=== PATIENT | male | born 1945 | race Caucasian/White ===

== ENCOUNTER 2017-01-11 07:16 | Observation (INO) | payer MEDICARE, OTHER ==
[2017-01-11] VITALS (25 sets, daily range): BP systolic 120–166; BP diastolic 67–110; PULSE 64–83; RESP 10–23; Ht 170.2 cm; Wt 111.4 kg
[~2017-01-11] VITALS: Ht 170.2 cm; Wt 111.4 kg
[~2017-01-11 07:16] MED LIST: AMLO-147 PO; ASPI-535 PO; ATOR10TA65 PO; CIPR-193 PO; DOCU-144 PO; EXCED PO; HYDR-762 PO; ISOS20TA19 PO; METO-319 PO; NIAC500T92 PO; ONDA4TAB8 PO; TICA90TA PO; Tamsulosin Hcl PO
[2017-01-11] MEDS ORDERED: VALS160T20 PO (09:18)
[2017-01-11] MEDS ORDERED: ISOS60TA PO (09:19)
[2017-01-11] MEDS ORDERED: NCN500CCR PO (09:20)
[2017-01-11] MEDS ORDERED: RANI-347 PO (09:20)
[2017-01-11] MEDS ORDERED: METO-319 PO (09:21)
[2017-01-11] MEDS ORDERED: ACET-141 PO (09:22)
[2017-01-11] MEDS ORDERED: FAMOTIDINE 20 MG TAB PO ONE (09:30)
[2017-01-11] MEDS ORDERED: DIAZEPAM 5 MG TAB PO ONE (09:30)
[2017-01-11] MEDS ORDERED: DIPHENHYDRAMINE 50 MG CAP PO ONE (09:30)
[2017-01-11] MEDS ORDERED: SOD CHLORIDE 0.45% 1,000 ML IV ONE (09:30)
--- NOTE | 2017-01-11 09:54 | RADRPT ---
PROCEDURE: XR Chest. CLINICAL INDICATION: Positive stress test. TECHNIQUE: Portable semiupright. COMPARISON: 03/30/2015. FINDINGS: The heart is enlarged. Post CABG changes are present. Mild chronic elevation of the right hemidiaphr agm. No superimposed acute pulmonary process is demonstrated. IMPRESSION: 1. Stable mild cardiomegaly without superimposed acute pulmonary process. RPTAT: [facility] Physician Geovani Date Time Electronically viewed and signed by Cruz Feliz Physician on 01/11/2017 09:46 RR/
[2017-01-11] MEDS ORDERED: HEPARIN 1000 UNITS/NS (A-LINE) 1,000 ML ONE (10:14)
[2017-01-11] MEDS ORDERED: MIDAZOLAM 1 MG/ML 2 ML INJ ONE (10:14)
[2017-01-11] MEDS ORDERED: VERAPAMIL 5 MG INJ ONE (10:14)
[2017-01-11] MEDS ORDERED: IODIXANOL LOCM 100 ML BTL ONE (10:14)
[2017-01-11] MEDS ORDERED: FENTAnyl 50 MCG/ML VIAL ONE (10:14)
[2017-01-11] MEDS ORDERED: LIDOCAINE 1% (MDV) 20 ML INJ ONE (10:14)
[2017-01-11] MEDS ORDERED: HEPARIN 1000 UNITS/ML 10 ML INJ ONE (10:14)
[2017-01-11] MEDS ORDERED: NITROGLYCERIN (IC) 100 MCG/ML INJ ONE (10:15)
[2017-01-11] MEDS ORDERED: BIVALIRUDIN 250MG /NS 50 ML 50 ML IVPB ONE (11:02)
[2017-01-11] MEDS ORDERED: IOHEXOL 350MG/ML 50 ML BTL ONE (11:04)
[2017-01-11] MEDS ORDERED: TICAGRELOR 90 MG TABLET ONE (11:13)
[2017-01-11] MEDS ORDERED: ASPIRIN 325 MG TAB ONE (11:14)
[2017-01-11] MEDS ORDERED: SOD CHLORIDE 0.9% 1,000 ML IV SCH (11:51)
--- NOTE | 2017-01-11 11:59 | SIPON ---
Date/Time of Note Date/Time of Note DATE: 01/11/17 TIME: 11:58 Operative Report Preoperative Diagnosis 1.Angina 2.cad 3.Abnl mpi Postoperative Diagnosis 1.successful PTCA/stent x 3 to RCA with MAURA Operation/Procedure Performed 1.[facility] 2.PTCA/stent x 3 to RCA Surgeon see signature line assistant engineer 1.Angineh Anesthesia: moderate sedation Estimated blood loss: minimal Transfusion Required none Specimen NA Grafts/Implants none Complications none RENALDO LEMUS Jan 11, 2017 11:59
--- NOTE | 2017-01-11 11:59 | SIPON ---
Date/Time of Note Date/Time of Note DATE: 01/11/17 TIME: 11:58 Operative Report Preoperative Diagnosis 1.Angina 2.cad 3.Abnl mpi Postoperative Diagnosis 1.successful PTCA/stent x 3 to RCA with MAURA Operation/Procedure Performed 1.[facility] 2.PTCA/stent x 3 to RCA Surgeon see signature line assistant federal public defender 1.Angineh Anesthesia: moderate sedation Estimated blood loss: minimal Transfusion Required none Specimen NA Grafts/Implants none Complications none RENALDO LEMUS Jan 11, 2017 11:59
--- NOTE | 2017-01-11 11:59 | SIPON ---
Date/Time of Note Date/Time of Note DATE: 01/11/17 TIME: 11:58 Operative Report Preoperative Diagnosis 1.Angina 2.cad 3.Abnl mpi Postoperative Diagnosis 1.successful PTCA/stent x 3 to RCA with MAURA Operation/Procedure Performed 1.[facility] 2.PTCA/stent x 3 to RCA Surgeon see signature line engineer first assistant 1.Angineh Anesthesia: moderate sedation Estimated blood loss: minimal Transfusion Required none Specimen NA Grafts/Implants none Complications none RENALDO LEMUS Jan 11, 2017 11:59
[2017-01-11] MEDS ORDERED: morphine 2 MG INJ IV PRN (12:00)
[2017-01-11] MEDS ORDERED: ONDANSETRON 4 MG INJ IV PRN (12:00)
[2017-01-11] MEDS ORDERED: ACETAMINOPHEN 325 MG TAB PO PRN (12:00)
[2017-01-11] MEDS ORDERED: ZOLPIDEM 5 MG TAB PO PRN (12:00)
[2017-01-11] MEDS ORDERED: AL HYDROX/MG HYDROX/SIMETH 30 ML CUP PO PRN (12:00)
[2017-01-11] MEDS ORDERED: OXYCODONE/ACETAMINOPHEN (5/325) TAB PO PRN (12:00)
--- NOTE | 2017-01-11 15:34 | CARRPT ---
DATE OF PROCEDURE: 01/11/2017 TYPE OF PROCEDURE: 1. Left heart catheterization. 2. Coronary angiography. 3. Percutaneous transluminal coronary angioplasty with placement of Synergy drug-eluting stents x3, a 2.5 x 16 mm, 2.5 x 12 mm and 3.0 x 16 mm. ATTENDING PHYSICIAN: Renaldo Jon MD. REFERRING PHYSICIAN: Self-referred. INDICATION: Unstable angina. TYPE OF ANESTHESIA: Conscious and local. BRIEF HISTORY AND HOSPITAL COURSE. Mr. Gao is a 71-year-old male with history of hypertension, dyslipidemia, coronary artery disease, status post prior PTCA and stent placement in 2014 after fin ding occluded saphenous vein graft to LAD, who now presents with recurrent substernal chest pain and positive stress test findings for ischemia. PROCEDURE: After informed consent was obtained, the patient was brought [facility] [place] cardiac catheterization lab where his left radial area was prepped and draped in usual sterile fas hion. Lidocaine 2% was infiltrated in left radial area in order to achieve adequate anesthesia. Us ing modified Seldinger technique, the left femoral artery was cannulated and a 6-[place]an arterial she ath was placed. A 6-[place] JL3.5 catheter was used to cannulate the left coronary ostium with contr ast injection, multiple views of the left coronary arterial system were obtained. JL3.5 was removed over a guidewire and a JR4 was used to cannulate the right coronary arterial ostium. With contrast injection, multiple views of the right coronary arterial system obtained. JR4 was removed over a g uidewire. After additionally being used to cross the aortic valve and pull back across the aortic v alve to assess for gradient, it was removed and subsequently at this time, we moved directly to inte rventional procedure. The patient was given Angiomax bolus continuous infusion, in addition to the prior primary radial cocktail then had 2500 of heparin and 2.5 verapamil and 200 of nitroglyce rin. The patient had a JR guide used to cannulate the right coronary arterial ostium. A 0.014 morena nce middleweight guidewire was passed distal to the lesions into the right coronary artery. The les ions were pretreated with a 2.5 x 12 mm balloon up to 10 to 12 atmospheres x3 to 4 inflations to ___ __ lesions. Subsequently, the most distal lesion was then stented with a 2.5 x 16 mm drug-eluting s tent deployed at 14 atmospheres, post-dilated with the stent delivery system up to 16 atmospheres. Followup angiogram was obtained revealing excellent result, deployment of stent, [place] 3 flow through out the vessel, a mild waist in the midportion of the stent. Subsequently, a second 3.0 x 16 mm ella nt was added proximal to the stent for another lesion and deployed at 14 atmospheres, post-dilated w ith the stent delivery system up to 16 atmospheres. Followup angiogram was obtained. Excellent res ult placing the stent, PARISH 3 flow throughout the vessel and no signs of complication including perf oration or dissection. Subsequently, at this time a noncompliant 2.75 x 8 mm balloon was used to fu rther post-dilate this stent up to 18 atmospheres. The balloon was removed. Followup angiogram was obtained revealing no residual waist and no complications. Subsequently, at this time, there was s ignificant stenosis noted in between the stents and stent was added proximal to the most distal sten t, a 2.5 x 12 mm and it was deployed at 14 atmospheres and then the stent delivery balloon was place d forward to stent overlap zone, inflation was made to 18 atmospheres. Followup angiogram was obtai bekah revealing excellent result with deployment of all 3 stents, PARISH 3 flow throughout the vessel, n o signs of complication including perforation or dissection. Subsequently, at this time, the interv entional guide was removed and attention was turned to the LAD. A diagnostic once again place d in the LAD and the patient was given 200 nitroglycerin to assess the distal part of the LAD for larger size. After nitroglycerin was placed, there was no change in caliber of this vessel, it becomes a very small caliber vessel off the distal stent proximally, a sub 2 mm vessel that goes binta und the apex with a stenosis just around the apex of approximately 90%. Subsequently, at this time, the interventional guide was removed. The patient's sheath was removed. TR band was applied. Thi s completed the procedure. There were no noted complications. FINDINGS: Coronary angiography: Left main 4.5 mm with a mid-body 20% to 30% stenosis. The LAD proximally is a 4-mm vessel and then in the mid portion of the vessel I have a long stented zone with mild in-sten t restenosis approximately 10% to 20%. The vessel becomes a sub 2 mm vessel and goes around the ape x with just the apex having a 90% to 95% stenosis. There is a proximal branching diagonal 2 mm with a very diffuse disease in the very distal portion of the vessel where it is sub 1.5 mm. The circum flex proximally is a 3.5 mm vessel and has mild luminal irregularities in its distal portion up to a pproximately 10% to 20%. The mid branching obtuse marginal 2 mm vessel with no significant focal st enoses and a proximal branching obtuse marginal 2.5 mm vessel with an ostial 30% stenosis. It is a codominant vessel and therefore gives off a left-sided PDA and posterolateral branch, each approxima tely 2 mm with no significant focal stenoses. The right coronary artery proximally is a 3-mm vessel , in its mid portion has a 20% to 30% stenosis and in the very distal portion of the posterolateral branch, there is an 80% to 90% stenosis and proximal to that there is 70% to 80% stenosis. Measurement of left ventricular and diastolic pressure 15 to 16. No significant aortic stenosis by gradient. PTCA and stent placement: Prior to PTCA and stent placement in the right coronary artery, the patie nt had a distal 80% to 90% stenosis and a mid-distal 80% stenosis. Post-PTCA and stent placement, t he patient had no residual stenosis in these regions and PARISH 3 flow throughout the vessel and no si gns of complication including perforation or dissection. TOTAL FLUOROSCOPY TIME: 15.7 minutes. TOTAL CONTRAST: 210 mL. IMPRESSION: 1. Two-vessel obstructive coronary artery disease involving the very distal incomplete placed left anterior descending lesion and tandem lesions in the patient's right coronary artery and posterolate ral branch, status post successful percutaneous transluminal coronary angiography and stent placemen t x3 with drug-eluting stents. 2. High normal left heart filling pressures. 3. No significant aortic stenosis by gradient. 4. Widely patent left anterior descending stent with no significant in-stent restenosis. RECOMMENDATIONS: In light of procedure and findings at this time would: 1. Maintain the patient on aspirin 81 mg 1 tab p.o. daily indefinitely at this time. 2. Brilinta 90 mg 1 tab p.o. b.i.d. for at least 1 year. 3. Maximize medical management. 4. Aggressive risk factor reduction. 5. The patient will be admitted to the postanesthesia care unit in the ICU for post-intervention ob servation and continued management of presenting symptoms with probable discharge the following day. Dictated By: RENALDO SOUSA/HEATHER Conf#: [id number] DID#: [id number]
[2017-01-11] MEDS ORDERED: ACETAMINOPHEN 500 MG TAB PO PRN (16:30)
--- NOTE | 2017-01-11 17:24 | HP ---
DATE OF ADMISSION: 01/11/2017 REASON FOR ADMISSION: A positive stress test. HISTORY OF PRESENTING ILLNESS: This is a 71-year-old male with a past medical history of coronary a rtery bypass graft in 2000, history of ST elevation myocardial infarction in 02/2015, history of vic or stroke, prior kidney stones, hypertension, morbid obesity, systolic dysfunction with EF of 35%, w isabel was admitted by Dr. Lemus for angiogram due to positive stress test. The patient said that he had a stent placement in 2014 after finding occluded saphenous vein graft to left anterior descendin g. The patient was told at that time by Dr. Lemus that he will probably require a third stent; ho wever, he had been deferring it due to his other issues. On and off, he would have substernal chest pain with exertion. He had a recent stress test that was positive for ischemia and was admitted fo r elective angiogram. The patient had an angiogram today by Dr. Lemus and had a two-vessel obstru ctive coronary artery disease involving the distal incomplete placed left anterior descending lesion and tandem lesions in the RCA and posterolateral branch, had a PCI and a stent placement x3 with dr mckeon-eluting stents and was admitted to the ICU and I was called in for further management. PAST MEDICAL HISTORY: 1. Hypertension. 2. Hyperlipidemia. 3. History of coronary artery bypass graft 2000, status post stent placement in 2014. 4. 8 mm left kidney stone. 5. Hernia surgery on the right inguinal hernia. 6. Morbid obesity. 7. Congestive heart failure. ALLERGIES: NO KNOWN DRUG ALLERGIES. MEDICATIONS AT HOME: 1. Amlodipine 10. 2. Aspirin 81. 3. Lipitor 10. 4. Colace. 5. [place]. 6. Imdur 20 t.i.d. 7. Toprol-XL 50. 8. Niacin 50 daily. 9. Brilinta 90 mg p.o. b.i.d. SOCIAL HISTORY: Denies any history of smoking, alcohol or any drug use. Currently lives at home wi th the family. FAMILY HISTORY: Significant for both mother and father having heart disease. Father also had kidne y stones. PAST SURGICAL HISTORY: Significant for hernia repair and also prior CABG in 2010. REVIEW OF SYSTEMS: The patient is currently status post angiogram. Also has some left arm pain in the TR band site. On and off has pain in the left flank due to kidney stone. The patient is also d ealing with the pain in the right groin due to inguinal hernia. Denies any shortness of breath, any lower extremity edema, any hematemesis, any melena, any bright red blood per rectum. Denies any he adache, any blurry vision. Denies any focal neurological deficits. PHYSICAL EXAMINATION: VITAL SIGNS: Blood pressure 164/82, heart rate 78, saturating 97% on room air. GENERAL: The patient is awake, alert, oriented x4, well-developed male, does not appear to be in an y acute distress. HEENT: Pupils equal, round, reactive to light. NECK: Supple, no JVD. HEART: Regular rate and rhythm. No murmur, rub or gallop. LUNGS: Clear to auscultate bilaterally. ABDOMEN: Soft, nontender, nondistended, positive normoactive bowel sounds. EXTREMITIES: Some trace edema on the lower extremities. Patient has the left hand with a small hem atoma status post angiogram. Palpable pulses. SKIN: The patient has prior surgical scar from CABG. DIAGNOSTIC DATA: BMP within normal limit, sodium of 146, potassium 4.3, BUN of 19, creatinine 1.16. LDL 54. White count of 4.8, hemoglobin 14.0. ASSESSMENT AND PLAN: This is a 71-year-old male presenting with: 1. Chest pain with positive stress test, status post successful percutaneous transluminal coronary angioplasty and stent x3 to right coronary artery with drug-eluting stent. 2. Hypertension. 3. Hyperlipidemia. 4. History of prior coronary artery bypass grafting. 5. History of congestive heart failure. 6. Morbid obesity. 7. Right inguinal hernia. 8. An 8 mm left kidney stone. PLAN: At this period of time, the patient is admitted to ICU care. The patient has a small hematom a at the site of the angiogram, will continue to monitor. At current, the patient has palpable puls es. The patient is currently on aspirin 81, Brilinta 90 b.i.d. for at least a year. Blood pressure control. We will follow the patient closely with cardiology and the patient is currently also on T oprol, statin. Will follow the patient closely with cardiology. Dictated By: MAYTE MG/HEATHER Conf#: [id number] DID#: [id number] CC: RENALDO LEMUS MD;*EndCC*
--- NOTE | 2017-01-11 18:25 | RADRPT ---
Vent Rate: 68 bpm RR Interval: 0 msec [place] Interval: 194 msec QRS Duration: 132 msec QT Interval: 414 msec QTC Interval: 440 msec P-R-T [place]: 59 - -56 - 165 degrees Normal sinus rhythm Left axis deviation Left ventricular hypertrophy with QRS widening Cannot rule out Septal infarct , age undetermined T wave abnormality, consider lateral ischemia Abnormal ECG Electronically Signed By: Carson Jon [id number]
--- NOTE | 2017-01-11 18:25 | RADRPT ---
Vent Rate: 68 bpm RR Interval: 0 msec [place] Interval: 194 msec QRS Duration: 132 msec QT Interval: 414 msec QTC Interval: 440 msec P-R-T [place]: 59 - -56 - 165 degrees Normal sinus rhythm Left axis deviation Left ventricular hypertrophy with QRS widening Cannot rule out Septal infarct , age undetermined T wave abnormality, consider lateral ischemia Abnormal ECG Electronically Signed By: Carson Jon [id number]
--- NOTE | 2017-01-11 18:25 | RADRPT ---
Vent Rate: 68 bpm RR Interval: [address] Interval: 194 msec QRS Duration: 132 msec QT Interval: 414 msec QTC Interval: 440 msec P-R-T [place]: 59 - -56 - 165 degrees Normal sinus rhythm Left axis deviation Left ventricular hypertrophy with QRS widening Cannot rule out Septal infarct , age undetermined T wave abnormality, consider lateral ischemia Abnormal ECG Electronically Signed By: Carson Jon [id number]
[2017-01-11] MEDS ORDERED: METOPROLOL (XL) 50 MG TAB PO SCH (21:00)
[2017-01-11] MEDS ORDERED: NIACIN (ER) 500 MG TAB PO SCH (21:00)
[2017-01-11] MEDS ORDERED: ATORVASTATIN 10 MG TAB PO SCH (21:00)
[2017-01-11] MEDS: VALSARTAN 160 MG TAB PO SCH (21:17)
[2017-01-11] MEDS: TICAGRELOR 90 MG TABLET PO SCH (21:20)
[2017-01-12] VITALS (12 sets, daily range): BP systolic 136–188; BP diastolic 52–87; PULSE 62–73; RESP 13–19
--- NOTE | 2017-01-12 08:46 | PDOCDIS ---
Discharge Instructions DIAGNOSIS Discharge Diagnosis 2 vessel Obstructive CAD s/p PCI CONDITION Patient Condition: Fair HOME CARE INSTRUCTIONS: Special Diet: CARDIAC DIET ACTIVITY: Activity Restrictions: Avoid Heavy Housework Cardiac Rehab FOLLOW UP/APPOINTMENTS Follow-up Plan F/U Dr Jon on SUNDAY Avoid heavy lifting, strenuous work for few weeks MAYTE OWUSU MD Jan 12, 2017 08:46
[2017-01-12] MEDS ORDERED: ASPIRIN (EC) 81 MG TAB PO SCH (09:00)
[2017-01-12] MEDS: VALSARTAN 160 MG TAB PO SCH (09:08)
[2017-01-12] MEDS: TICAGRELOR 90 MG TABLET PO SCH (09:09)
--- NOTE | 2017-01-12 11:23 | CONS ---
Date/Time of Note Date/Time of Note DATE: 01/12/17 TIME: 11:14 Assessment/Plan Assessment/Plan Chief Complaint/Hosp Course IMP: 1.POD#1 s/p PTCA/stent x 3 2.HTN 3.HL 4.angina unstable prior to stenting Recc: -Tele -serial ecg's -Continue asa/brilinta -Continue BB/diovan/statin/niacin -OK for d/c with outpatient f/u scheduled tuesday 01/16 Problems: Consultation Date/Type/Reason Admit Date/Time Jan 11, 2017 at 11:57 Initial Consult Date 01/11/17 Type of Consultation: cardiology Reason for Consultation chest pain/cad Referring Provider: MAYTE OWUSU MD Exam/Review of Systems Vital Signs Vitals Vital Signs Date Time Temp Pulse Resp B/P Pulse Ox O2 Delivery O2 Flow Rate FiO2 01/12/17 10:00 73 15 139/71 99 01/12/17 09:00 Room Air 01/12/17 07:00 98.0 Intake and Output 01/11/17 01/11/17 01/12/17 15:00 23:00 07:00 Intake Total 275 ml 800 ml 250 ml Output Total 200 ml 200 ml 300 ml Balance 75 ml 600 ml -50 ml Exam Review of Systems: CONSTITUTIONAL: No fevers, chills. PULMONARY: No sob CARDIOVASCULAR: No chest pain/palpitations GASTROINTESTINAL: No nausea/vomiting. GENITOURINARY: No hematuria/dysuria. MUSCULOSKELETAL: No myagias/arthalgias. PSYCHIATRIC: The patient denies depression. NEUROLOGIC: No weakness Constitutional: alert Psych: no complaints Head: normocephalic ENMT: mucosa pink and moist Neck: jvd (9 cm water), supple Respiratory: diminished breath sounds (at bases/B) Cardiovascular: regular rate and rhythm Gastrointestinal: non-tender, soft Musculoskeletal: muscle tone (normal) Extremities: edema (none) Neurological: other (No focal deficits) Results Result Diagram: 01/12/17 0543 01/12/17 0544 Results 24 hrs Laboratory Tests Test 01/12/17 05:43 01/12/17 05:44 White Blood Count 6.0 # Red Blood Count 4.13 L Hemoglobin 13.4 L Hematocrit 39.3 L Mean Corpuscular Volume 95.2 Mean Corpuscular Hemoglobin 32.4 Mean Corpuscular Hemoglobin Concent 34.1 Red Cell Distribution Width 12.7 Platelet Count 164 Mean Platelet Volume 10.3 Neutrophils % 70.0 Lymphocytes % 18.5 Monocytes % 9.2 Eosinophils % 1.5 Basophils % 0.5 Nucleated Red Blood Cells % 0.0 Neutrophils # 4.2 Lymphocytes # 1.1 Monocytes # 0.6 Eosinophils # 0.1 Basophils # 0.0 Nucleated Red Blood Cells # 0.0 Sodium Level 142 Potassium Level 4.3 Chloride Level 109 Carbon Dioxide Level 23 Anion Gap 14 Blood Urea Nitrogen 20 Creatinine 1.13 Glucose Level 88 Calcium Level 9.4 Creatine Kinase 69 Creatine Kinase Index 5.1 Creatinine Kinase MB (Mass) 3.51 H Troponin I 0.271 *H Triglycerides Level 143 Cholesterol Level 110 LDL Cholesterol, Calculated 45 HDL Cholesterol 36 Cholesterol/HDL Ratio 3.0 Medications Medications Current Medications Aspirin (Halfprin) 81 mg DAILY PO Last administered on 01/12/17 09:08; Admin Dose 81 MG; Start 01/12/17 at 09:00 Ticagrelor (Brilinta) 90 mg BID PO Last administered on 01/12/17 09:09; Admin Dose 90 MG; Start 01/11/17 at 21:00 Acetaminophen (Tylenol Tab) 650 mg Q4H PRN PO NON-CARDIAC PAIN LEVEL 1-3; Start 01/11/17 at 12:00 Oxycodone/ Acetaminophen (Percocet (5/ 325)) 1 tab Q4H PRN PO REPORTED NON- CARDIAC PAIN 4-7; Start 01/11/17 at 12:00 Morphine Sulfate (morphine) 1 mg Q1H PRN IV PAIN NOT RELIEVED BY OTHERS; Start 01/11/17 at 12:00 Al Hydrox/Mg Hydrox/Simethicone (Mag-Al Plus) 30 ml Q4H PRN PO GASTROINTESTINAL UPSET; Start 01/11/17 at 12:00 Ondansetron HCl (Zofran Inj) 4 mg Q4H PRN IV NAUSEA AND/OR VOMITING; Start at 12:00 Atorvastatin Calcium (Lipitor) 10 mg QHS PO Last administered on 01/11/17 21: 17; Admin Dose 10 MG; Start 01/11/17 at 21:00 Acetaminophen (Tylenol Tab) 1,000 mg TID PRN PO PAIN AND OR ELEVATED TEMP; Start 10/19/17 at 16:30 Metoprolol Succinate (Toprol Xl) 50 mg QHS PO Last administered on 01/11/17 21:18; Admin Dose 50 MG; Start 01/11/17 at 21:00 Niacin (Niaspan) 500 mg QHS PO Last administered on 01/11/17 21:18; Admin Dose 500 MG; Start 01/11/17 at 21:00 Valsartan (Diovan) 160 mg BID PO Last administered on 01/12/17 09:08; Admin Dose 160 MG; Start 01/11/17 at 21:00 RENALDO LEMUS Jan 12, 2017 11:23
--- NOTE | 2017-01-12 16:55 | RADRPT ---
Vent Rate: 70 bpm RR Interval: 0 msec [place] Interval: 196 msec QRS Duration: 136 msec QT Interval: 404 msec QTC Interval: 436 msec P-R-T [place]: 68 - -62 - 122 degrees Normal sinus rhythm Left axis deviation Left ventricular hypertrophy with QRS widening and repolarization abnormality Abnormal ECG Electronically Signed By: Carson Jon [id number]
--- NOTE | 2017-01-12 16:55 | RADRPT ---
Vent Rate: 70 bpm RR Interval: 0 msec [place] Interval: 196 msec QRS Duration: 136 msec QT Interval: 404 msec QTC Interval: 436 msec P-R-T [place]: 68 - -62 - 122 degrees Normal sinus rhythm Left axis deviation Left ventricular hypertrophy with QRS widening and repolarization abnormality Abnormal ECG Electronically Signed By: Carson Jon [id number]
--- NOTE | 2017-01-12 16:55 | RADRPT ---
Vent Rate: 70 bpm RR Interval: 0 msec [place] Interval: 196 msec QRS Duration: 136 msec QT Interval: 404 msec QTC Interval: 436 msec P-R-T [place]: 68 - -62 - 122 degrees Normal sinus rhythm Left axis deviation Left ventricular hypertrophy with QRS widening and repolarization abnormality Abnormal ECG Electronically Signed By: Carson Jon [id number]
--- NOTE | 2017-01-12 16:56 | RADRPT ---
Vent Rate: 69 bpm RR Interval: 0 msec [place] Interval: 196 msec QRS Duration: 134 msec QT Interval: 422 msec QTC Interval: 452 msec P-R-T [place]: 90 - -47 - 0 degrees Normal sinus rhythm Left axis deviation Left ventricular hypertrophy with QRS widening Cannot rule out Septal infarct , age undetermined T wave abnormality, consider inferolateral ischemia Abnormal ECG Electronically Signed By: Carson Jon [id number]
--- NOTE | 2017-01-12 16:56 | RADRPT ---
Vent Rate: 69 bpm RR Interval: 0 msec [place] Interval: 196 msec QRS Duration: 134 msec QT Interval: 422 msec QTC Interval: 452 msec P-R-T [place]: 90 - -47 - 0 degrees Normal sinus rhythm Left axis deviation Left ventricular hypertrophy with QRS widening Cannot rule out Septal infarct , age undetermined T wave abnormality, consider inferolateral ischemia Abnormal ECG Electronically Signed By: Carson Jon [id number]
--- NOTE | 2017-01-12 16:56 | RADRPT ---
Vent Rate: 69 bpm RR Interval: 0 msec [place] Interval: 196 msec QRS Duration: 134 msec QT Interval: 422 msec QTC Interval: 452 msec P-R-T [place]: 90 - -47 - 0 degrees Normal sinus rhythm Left axis deviation Left ventricular hypertrophy with QRS widening Cannot rule out Septal infarct , age undetermined T wave abnormality, consider inferolateral ischemia Abnormal ECG Electronically Signed By: Carson Jon [id number]
--- NOTE | 2017-01-13 04:42 | DS ---
DATE OF ADMISSION: 01/11/2017 DATE OF DISCHARGE: 01/12/2017 REASON FOR ADMISSION: Positive stress test. FINAL DISCHARGE DIAGNOSES: 1. Chest pain with positive stress test status post successful percutaneous transluminal coronary a ngioplasty and stent x3 to right coronary artery with a drug-eluting stent. 2. Hypertension. 3. Hyperlipidemia. 4. History of prior coronary artery bypass. 5. History of congestive heart failure. 6. Morbid obesity. 7. Right inguinal hernia. 8. An 8 mm left kidney stone. 9. Symptomatic currently. HOSPITAL COURSE: This is a 71-year-old male with a past medical history of coronary artery bypass, history of a ST elevation [place] in 2014, prior stroke, prior kidney stones, EF of 35%, was admitted by Dr. Jon for angiogram due to positive stress test as an outpatient. The patient said that he horowitz d stents placed in 2014. The patient was told that he probably required a third stent; however, he had been deferring it due to other issues. On and off, he would have substernal chest pain with exe rtion. He had a recent stress test that was positive for ischemia. Was admitted for elective angio gram. The patient had an angiogram done that had 2-vessel obstructive coronary artery disease invol ving the distal incomplete left anterior descending lesion, tandem lesions in RCA, and had a PCI and stent placement x3, and the patient was admitted to ICU for monitoring and the patient was continue d on aspirin, Brilinta, metoprolol, statin and Valsartan. Currently, the patient had been doing muc h better. The next day, the vital signs stable. Per Dr. Jon is stable to be discharged home. FINAL DISCHARGE INSTRUCTIONS: 1. The patient will be followed with Dr. Jon on 01/14/2017. 2. The patient was instructed to avoid strenuous exercises. DISCHARGE MEDICATIONS: Continue with home medications which were: 1. Aspirin 81. 2. Brilinta 90 mg b.i.d. for 1 year. I will start him on 60 b.i.d. 3. Neomycin 500. 4. Metoprolol 500 at bedtime. 5. Atorvastatin 10. 6. Ranitidine 70. 7. Imdur . The patient was instructed to return to the ER if he has worsening chest pain, shortness of breath. Thank you, Dr. Jon, for consulting on this patient. Dictated By: MAYTE MG/HEATHER Conf#: [id number] DID#: [id number]
== END 2017-01-12 11:55 | disposition home or self-care (01) ==
LOC: SDS 07:16 → INTOOBSV 11:57 → SDS 11:57 → REC 11:57 → ICU 13:30
PROVIDERS: ADMIT Internal Medicine; ATTEND Internal Medicine
DX: I25.119 Atherosclerotic heart disease of native coronary artery with unspecified angina pectoris (principal); E66.01 Morbid (severe) obesity due to excess calories; Z68.38 Body mass index [BMI] 38.0-38.9, adult; I10 Essential (primary) hypertension; E78.5 Hyperlipidemia, unspecified; N20.0 Calculus of kidney; Z95.1 Presence of aortocoronary bypass graft; I25.2 Old myocardial infarction; K40.90 Unilateral inguinal hernia, without obstruction or gangrene, not specified as recurrent
CPT/HCPCS: 71010; 80048; 80061; 82550; 82553; 84484; 85025; 85610; 85730; 93005; 93458; C1725; C1874; C1887; C9600; G0378; J0583; J1644; J2250; J3010; Q9967

== ENCOUNTER 2017-03-26 20:39 | Inpatient (IN) | END 2017-04-06 15:14 | DRG 668 ==

== ENCOUNTER 2017-04-25 09:29 | Emergency (ER) | END 2017-04-25 16:00 | disposition left against medical advice (07) ==

== ENCOUNTER 2017-07-05 19:49 | Inpatient (IN) | END 2017-07-10 15:33 | disposition home or self-care (01) | DRG 308 ==

== ENCOUNTER 2017-07-27 10:58 | Inpatient (IN) | END 2017-08-03 18:00 | disposition home or self-care (01) | DRG 292 ==

== ENCOUNTER 2018-12-21 16:46 | Emergency (ER) | payer MEDICARE, OTHER ==
[~2018-12-21] VITALS: Ht 172.7 cm; Wt 113.6 kg
[~2018-12-21 16:46] MED LIST changes: +ACET-141 PO; +AMIO200T4 PO; -AMLO-147 PO; +APIX2.5T PO; +APIX5TAB PO; -ASPI-535 PO; -CIPR-193 PO; -DOCU-144 PO; -EXCED PO; +FURO40TA4 PO; -HYDR-762 PO; -ISOS20TA19 PO; +MAG-19 PO; +MECL12.574 PO; -METO-319 PO; +METO-335 PO; +NIAC500T81 PO; -NIAC500T92 PO; +ONDA4TAB14 PO; -ONDA4TAB8 PO; +RANI-513 PO; +TAMS-14 PO; -Tamsulosin Hcl PO; +VALS80TA2 PO
[2018-12-21 17:01] VITALS: Ht 172.7 cm; Wt 113.6 kg
[2018-12-21] MEDS ORDERED: LIDOCAINE/MYLANTA 40 ML BTL PO ONE (18:30)
[2018-12-21] MEDS ORDERED: ONDANSETRON 4 MG INJ IV STA (18:33)
[2018-12-21] MEDS ORDERED: SOD CHLORIDE 0.9% 1,000 ML IV STA (18:33)
[2018-12-21] MEDS ORDERED: ACETAMINOPHEN 325 MG TAB PO ONE (20:00)
[2018-12-21 21:00] VITALS: BP 153/88; PULSE 70; RESP 20
== END 2018-12-21 21:26 | disposition home or self-care (01) ==
LOC: E/R 16:46
DX: R07.9 Chest pain, unspecified (principal); I25.2 Old myocardial infarction; I11.0 Hypertensive heart disease with heart failure; I50.9 Heart failure, unspecified; R11.0 Nausea; R19.7 Diarrhea, unspecified; Z95.1 Presence of aortocoronary bypass graft; Z79.01 Long term (current) use of anticoagulants
CPT/HCPCS: 36415; 71045; 80053; 84484; 85025; 96374; 99285; J2405; J7030; 93005